=== PATIENT | male | born 1965 | race Caucasian/White ===

== ENCOUNTER → 2018-11-05 08:38 | Outpatient (CLI) | payer OTHER, SELFPAY ==
[2018-11-05 10:13] LABS: Add Manual Diff / Slide Review NO; Basophils Percent Auto 0.2 % (0-2); Eosinophils Percent Auto 0.9 % (2-4); Hematocrit 41.1 % (41-53); Mean Corpuscular HGB Conc 34.1 % (30-36); Mean Corpuscular Hemoglobin 31.3 PG (26-34); Mean Corpuscular Volume 91.7 fL (80-100); Monocytes Percent Auto 6.5 % (3-14); Neutrophils Absolute Auto 5600 /uL (1500-7000); Neutrophils Percent Auto 74.4 % (50-75); Platelet Count 281 X10^3/uL (150-400); Red Blood Cell Count 4.48 X10^6/uL (4.5-5.9); Red Cell Distribution Width 13.8 % (11.6-14.8); White Blood Cell Count 7.6 X10^3/uL (4.5-11.0)
[2018-11-05 10:25] LABS: Alanine Aminotransferase 29 IU/L (21-72); Albumin 4.7 g/dL (3.5-5.0); Albumin Globulin Ratio 1.6 (1.0-2.8); Alkaline Phosphatase 36 U/L (38-126); Aspartate Aminotransferase 27 IU/L (17-59); Bilirubin Total 0.7 mg/dL (0.2-1.3); Blood Urea Nitrogen 14 mg/dL (9-20); Carbon Dioxide 28 mmol/L (22-32); Chloride 102 mmol/L (98-107); Cholesterol 181 mg/dL (140-199); Estimated Glomerular Filt Rate > 60.0 mL/min (>60); Globulin 2.9 g/dL (1.7-4.1); Glucose 92 mg/dL (70-100); HDL Cholesterol 68 mg/dL (40-60); HEMOLYSIS 17 (0-50); LDL Cholesterol Calculated 102 mg/dL (<100); Sodium 141 mmol/L (137-145); Total Protein 7.6 g/dL (6.3-8.2); Triglycerides 56 mg/dL (35-150)
[2018-11-05 10:26] LABS: Potassium 5.5 mmol/L (3.4-5.1)
[2018-11-05 10:56] LABS: Prostate Specific Antigen 0.422 ng/mL (0.10-4.00)
== END ==
PROVIDERS: PCP Family Medicine; Visit Provider Family Medicine
DX: E78.2 Mixed hyperlipidemia (principal); I10 Essential (primary) hypertension; Z12.5 Encounter for screening for malignant neoplasm of prostate
CPT/HCPCS: 36415; 80053; 80061; 84153; 84443; 85025

== ENCOUNTER 2019-10-04 11:53 | Day surgery (SDC) | payer OTHER, SELFPAY ==
[2019-10-04 12:30] VITALS: BP 137/83; PULSE 77; RESP 20; TEMP 36.3; O2SAT 97; BMI 25.7
[2019-10-04] MEDS: SODIUM CHLORIDE 0.9% 1,000 ML 200 ML IV (12:40)
--- NOTE | 2019-10-04 12:55 | PM.HP.1 ---
History of Present Illness History of Present Illness Date Patient Seen: 10/04/19 Time Patient Seen: 12:55 Chief complaint: 10414 Narrative: This is a 54-year-old man here for his 1st screening colonoscopy. He denies any personal history of melena, hematochezia, abdominal pain, unexplained weight loss. He has no family history of colon polyps or colon cancers. He states he is otherwise healthy other than some high blood pressure for which he takes lisinopril. He denies any other symptoms or concerns. ROS Thirteen system review is negative other than as mentioned below and in HPI. PE: GENERAL: Well groomed and cooperative. Appears stated age. Answers questions promptly and appropriately. Vital signs noted. HENT: Normocephalic, atraumatic. Hearing intact. Oral mucosa is pink and moist. EYES: Conjunctiva pink, sclera white, no periorbital swelling. CARDIOVASCULAR: Regular rate. No pedal edema. RESPIRATORY: Non tachypneic, breathing comfortably on room air. GASTROINTESTINAL: Abdomen soft and non-distended GENITALURINARY: No flank tenderness. MUSCULOSKELETAL: Equal tone and mass bilaterally. SKIN: Warm, dry, soft, appropriate color for ethnicity. No other lesions, rashes, or wounds. NEURO: Alert and Oriented X 3. No gross sensory deficits, or cognitive issues. PSYCH: Appropriate affect and mood. Patient History Surgical History No history of previous surgery (Resolved 09/2015) Family & Social History Family History Mother Age: 74 Hypertension Father No problems noted. Brother No problems noted. Brother No problems noted. Social History: household members none Tobacco & Substance use: Smoking Status Former smoker alcohol intake current Meds Home Medications and Allergies Home Medications Medication Instructions Recorded Confirmed Type lisinopril 20 mg tablet 20 mg PO QDAY #90 tab 04/13/19 Rx Allergies Allergy/AdvReac Type Severity Reaction Status Date / Time No Known Drug Allergies Allergy Unverified 02/22/19 08:53 Exam Vital Signs (past 8 hours): - 10/04/19 12:30 Temperature 97.4 F L Pulse Rate 77 Respiratory Rate 20 Blood Pressure 137/83 Pulse Oximetry 97 Oxygen Delivery Method Room Air Assessment & Plan Assessment and plan (1) At average risk for colon cancer: Current visit: Yes Status: Acute (2) Colon cancer screening: Current visit: Yes Status: Acute Assessment & Plan narrative: This is a 54-year-old man here for his 1st colonoscopy. He is of the appropriate age for colon cancer screening. He denies any personal history of symptoms or any family history of concern. Risks and benefits of colonoscopy and possible polypectomy were discussed including risk of bleeding, perforation, need for additional procedures, risks of anesthesia. The patient desires to proceed. Plan: Screening colonoscopy, possible polypectomy Time Spent With Patient Time with patient: 15-24 minutes Quality VTE Deep Vein Thrombosis/Pulmonary Embolism Present on Admission: No
[2019-10-04] MEDS: fentaNYL 250 MCG/5 ML INJ IV (13:11)
[2019-10-04] MEDS: MIDAZOLAM 5 MG/5 ML VIAL IV (13:11)
--- NOTE | 2019-10-04 13:26 | PM.OP.ENDO ---
Operative Date/Time/Diagnoses Date of procedure: 10/04/19 Time of procedure: 13:26 Pre-op diagnosis: Average risk for colon cancer. Never had a screening colonoscopy. Post-op diagnosis: same Procedure & Clinicians Study performed: Screening colonoscopy Same procedure as scheduled: Yes Indications: Average risk for colon cancer. Never had a screening colonoscopy. Surgeon: Regi Buenrostro Procedure Notes SCOAP/Timeout: Performed Procedure in detail: The patient was brought to the room and placed in left lateral decubitus position with all bony prominences padded. A time-out was performed and then the patient was given procedural sedation starting with 5 mg of Versed and 100 mcg of fentanyl. Vitals were monitored throughout the procedure and remained stable. Once adequately sedated the procedure was begun. A rectal exam was performed revealing no abnormalities. The colonoscope was then introduced to the rectum and advanced to the cecum in the usual fashion. The cecum was identified by the appendiceal orifice, the mucosal try fold, and the ileocecal valve. The scope was then retracted while rotating side to side and examining each mucosal fold. Moderate diverticulosis was seen through the descending and sigmoid colon. No signs of active diverticulitis. At the conclusion procedure retroflexion was performed and small grade 1-2 internal hemorrhoids without stigmata of bleeding were seen. The scope was then withdrawn from the rectum the procedure was concluded. The patient tolerated the procedure well was transferred to the PACU in stable condition. Scope withdrawal time: 7 Sedation minutes: 15 Findings: diverticulosis Specimen(s): none sent Complications: none Impression: No polyps found. Moderate diverticulosis. Post-procedure Recommendations: Colonscopy in 10 years (Unless concerning symptoms arise) and Other recommendation (High-fiber diet, fiber supplement such as Metamucil or back fiber) Follow up: as needed Disposition: PACU
[2019-10-04 13:34] VITALS: BP 114/80; PULSE 72; RESP 10; TEMP 36.6; O2SAT 97
[2019-10-04 13:40] VITALS: BP 130/76; PULSE 66; RESP 14; O2SAT 98
[2019-10-04 13:45] VITALS: BP 122/73; PULSE 68; RESP 17; TEMP 36.3; O2SAT 99
[2019-10-04 13:54] VITALS: BP 123/79; PULSE 66; RESP 16; TEMP 36.6; O2SAT 96
== END 2019-10-04 14:00 | disposition home or self-care (01) ==
LOC: ENDO 11:55
PROVIDERS: Family Provider Family Medicine; PCP Family Medicine; Visit Provider Surgery
PROC: 0DJD8ZZ Inspection of Lower Intestinal Tract, Via Natural or Artificial Opening Endoscopic (ICD-10-PCS; CPT 45378; principal; 2019-10-04 13:00)
DX: Z12.11 Encounter for screening for malignant neoplasm of colon (principal); K64.0 First degree hemorrhoids; K57.30 Diverticulosis of large intestine without perforation or abscess without bleeding
CPT/HCPCS: 45378; 99152; J2250; J3010

== ENCOUNTER → 2020-06-15 11:21 | Outpatient (CLI) | payer OTHER, SELFPAY ==
[2020-06-15 12:33] LABS: Add Manual Diff / Slide Review NO; Basophils Absolute Auto 0 /uL (0-100); Basophils Percent Auto 0.5 % (0-2); Eosinophils Absolute Auto 100 /uL (0-450); Eosinophils Percent Auto 0.9 % (2-4); Hematocrit 40.7 % (41-53); Hemoglobin 13.8 g/dL (13.5-17.5); Lymphocytes Absolute Auto 1400 /uL (1100-4500); Lymphocytes Percent Auto 19.7 % (25-40); Mean Corpuscular HGB Conc 33.9 % (30-36); Mean Corpuscular Hemoglobin 30.8 PG (26-34); Mean Corpuscular Volume 90.7 fL (80-100); Monocytes Absolute Auto 500 /uL (0-900); Monocytes Percent Auto 7.7 % (3-14); Neutrophils Absolute Auto 5000 /uL (1500-7000); Neutrophils Percent Auto 71.2 % (50-75); Platelet Count 260 X10^3/uL (150-400); Red Blood Cell Count 4.49 X10^6/uL (4.5-5.9); Red Cell Distribution Width 13.3 % (11.6-14.8)
[2020-06-15 12:57] LABS: Alanine Aminotransferase 24 IU/L (<50); Albumin 4.6 g/dL (3.5-5.0); Albumin Globulin Ratio 1.5 (1.0-2.8); Alkaline Phosphatase 54 U/L (38-126); Aspartate Aminotransferase 30 IU/L (17-59); Bilirubin Total 0.4 mg/dL (0.2-1.3); Blood Urea Nitrogen 13 mg/dL (9-20); Calcium 9.6 mg/dL (8.4-10.2); Carbon Dioxide 29 mmol/L (22-32); Chloride 101 mmol/L (98-107); Cholesterol 200 mg/dL (140-199); Estimated Glomerular Filt Rate > 60.0 mL/min (>60); Glucose 94 mg/dL (70-100); HDL Cholesterol 73 mg/dL (40-60); HEMOLYSIS < 15 (0-50); LDL Cholesterol Calculated 97 mg/dL (<100); Potassium 4.3 mmol/L (3.4-5.1); Sodium 137 mmol/L (137-145); Total Protein 7.6 g/dL (6.3-8.2); Triglycerides 151 mg/dL (35-150)
[2020-06-15 13:25] LABS: Prostate Specific Antigen Scrn 1.16 ng/mL (0.1-4.0)
== END ==
PROVIDERS: Family Provider Family Medicine; PCP Family Medicine; Referring Provider Family Medicine; Visit Provider Family Medicine
DX: Z12.5 Encounter for screening for malignant neoplasm of prostate (principal); E78.2 Mixed hyperlipidemia; I10 Essential (primary) hypertension
CPT/HCPCS: 36415; 80053; 80061; 85025; G0103

== ENCOUNTER → 2020-06-19 10:15 | Outpatient (CLI) | payer OTHER, SELFPAY ==
--- NOTE | 2020-06-19 10:17 | DI.RAD.S_ITS ---
PROCEDURE: XR ANKLE LT MIN 3V INDICATIONS: Injury two months ago, rolled ankle TECHNIQUE: 3 views of the ankle were acquired. COMPARISON: None. FINDINGS: Bones: No fractures or dislocations. Ankle mortise is normally aligned. No suspicious bony lesions. Chronic appearing corticated subcentimeter ossicle projecting adjacent to the medial malleolus possibly loose body versus chronic fracture fragment. There is chronic appearing deformity of the distal fibula in keeping with fracture callus. Soft tissues: No tibiotalar joint effusion. Achilles tendon not well seen. IMPRESSION: Chronic post-traumatic and degenerative findings as above. If the patient's pain or other symptoms persist, consider further evaluation with MRI Dictated by: Sunil Stewart M.D. on 06/19/2020 at 11:42 Approved by: Sunil Stewart M.D. on 06/19/2020 at 11:44
== END ==
PROVIDERS: Family Provider Family Medicine; PCP Family Medicine; Referring Provider Family Medicine; Visit Provider Family Medicine
DX: M25.572 Pain in left ankle and joints of left foot (principal); M76.60 Achilles tendinitis, unspecified leg; S99.912D Unspecified injury of left ankle, subsequent encounter; X50.0XXD Overexertion from strenuous movement or load, subsequent encounter
CPT/HCPCS: 73610

== ENCOUNTER → 2020-06-29 11:44 | Outpatient (CLI) | payer OTHER, SELFPAY ==
--- NOTE | 2020-06-29 11:45 | DI.MRI.S_ITS ---
PROCEDURE: MR ANKLE LT WO CON INDICATIONS: left ankle pain/achilles pain TECHNIQUE: Noncontrast sagittal T1 spin echo and T2 fast spin echo with fat saturation, axial proton density fast spin echo and T2 fast spin echo with fat saturation, coronal T1 spin echo and T2 fast spin echo with fat saturation through the ankle/hindfoot. COMPARISON: None. FINDINGS: Image quality: Excellent. Bones and joints: No bone marrow contusions or fractures. No hindfoot coalitions. Unfused accessory navicular is noted, with mild degenerative changes seen at the synchondrosis. No osteochondral injuries of the talar dome. No pathologic joint effusions. Medial structures: Posterior tibialis intact. Flexor digitorum longus intact. There is mild posterior tibialis and flexor digitorum longus tenosynovitis. Flexor hallucis longus tendon intact. The posterior tibial neurovascular bundle appears normal within the tarsal tunnel, without extrinsic mass effect. Deltoid ligament complex appears intact. The spring ligament appears intact. Lateral structures: Anterior talofibular ligament intact. Calcaneofibular ligament intact. Posterior talofibular ligament intact. Anterior and posterior tibiofibular ligaments appear intact, as is the intermalleolar ligament. Tibiofibular syndesmosis is normal in width at 2 mm or less. Peroneus longus and brevis tendons appear normal. Bony peroneal tubercle and retrotrochlear prominence are normal in size. Sinus tarsi demonstrates normal fatty signal, without edema, fibrosis, or cyst formation. Anterior structures: Tibialis anterior intact. Extensor hallucis longus intact. Extensor digitorum longus tendon intact. Dorsal talonavicular ligament appears intact. Posterior and plantar structures: Rupture of the Achilles tendon is noted, with the distal stump visualized approximately 6.4 cm cephalad to the calcaneal insertion. There is marked background tendinopathy and interstitial change. There is adjacent soft tissue edema and fluid. Medial and lateral bands of the plantar fascia intact. No abductor digiti quinti muscle atrophy to suggest Mcclain neuropathy. IMPRESSION: Complete rupture of the Achilles tendon as detailed above. Mild posterior tibialis and flexor digitorum longus tenosynovitis Mild peroneus longus tenosynovitis. 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 Dictated by: Sunil Stewart M.D. on 06/29/2020 at 13:09 Approved by: Sunil Stewart M.D. on 06/29/2020 at 13:16
== END ==
PROVIDERS: Family Provider Family Medicine; PCP Family Medicine; Referring Provider Family Medicine; Visit Provider Family Medicine
DX: S86.012A Strain of left Achilles tendon, initial encounter (principal); M65.872 Other synovitis and tenosynovitis, left ankle and foot; M25.572 Pain in left ankle and joints of left foot; M76.60 Achilles tendinitis, unspecified leg; M72.2 Plantar fascial fibromatosis
CPT/HCPCS: 73721

== ENCOUNTER → 2021-07-23 13:49 | Outpatient (CLI) | payer OTHER, SELFPAY ==
[2021-07-23 14:40] LABS: BUN Creatinine Ratio 23.7 (6-22); Blood Urea Nitrogen 22 mg/dL (9-20); Calcium 9.4 mg/dL (8.4-10.2); Carbon Dioxide 26 mmol/L (22-32); Chloride 104 mmol/L (98-107); Estimated Glomerular Filt Rate > 60.0 mL/min (>60); Glucose 97 mg/dL (70-100); HEMOLYSIS < 15 (0-50); Potassium 4.3 mmol/L (3.4-5.1); Sodium 138 mmol/L (137-145)
[2021-07-23 15:11] LABS: Prostate Specific Antigen Scrn 0.582 ng/mL (0.1-4.0)
== END ==
PROVIDERS: Family Provider Family Medicine; PCP Family Medicine; Referring Provider Student in an Organized Health Care Education/Training Program; Visit Provider Student in an Organized Health Care Education/Training Program
DX: I10 Essential (primary) hypertension (principal); Z12.5 Encounter for screening for malignant neoplasm of prostate
CPT/HCPCS: 36415; 80048; G0103

== ENCOUNTER 2021-08-29 14:31 | Emergency (ER) | payer OTHER, SELFPAY ==
[2021-08-29 15:20] VITALS: BP 150/85; PULSE 72; RESP 18; TEMP 36.6; O2SAT 99; BMI 27.2
--- NOTE | 2021-08-29 15:26 | DI.US.S_ITS ---
PROCEDURE: US PERIPH VENOUS LOW EXTREM LT INDICATIONS: swelling, recent surgery, clinical concern for DVT TECHNIQUE: Real-time imaging, as well as color and pulse Doppler interrogation, were performed of the lower extremity deep veins from the inguinal ligament to the popliteal fossa. COMPARISON: None. FINDINGS: The common femoral, femoral and popliteal veins are normally compressible, and free of intraluminal thrombus. Color and pulse Doppler demonstrate normal phasic intraluminal flow. There is normal augmentation response to distal compression maneuver. IMPRESSION: Negative for deep venous thrombosis. Dictated by: Skip Zapata M.D. on 08/29/2021 at 15:02 Approved by: Skip Zapata M.D. on 08/29/2021 at 15:02
--- NOTE | 2021-08-29 18:48 | ED_ITS ---
HPI - Extremity Injury (Lower) <MAYTE Castano - Last Filed: 08/29/21 22:01> General Chief Complaint: Extremity Injury, Lower Stated Complaint: Left Achillies Surgery, Swelling Time Seen by Provider: 08/29/21 18:47 Source: patient Mode of arrival: Ambulatory History of Present Illness HPI Narrative: 56-year-old male presents emergency department today for increased swelling of his lower left extremity he is status post Achilles tendon repair on June 25. He states that he ruptured his Achilles all while fishing in [place], and waited most of a year to have it fixed. He states that he is going to physical therapy which has been helpful, his recovery has been uneventful and progressing as expected. 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 He denies any recent fever, lower extremity swelling that doesn't resolve with elevation, redness, discoloration, pain out of proportion or any increase of pain. Related Data Home Medications Medication Instructions Recorded Confirmed aspirin 325 mg tablet 325 mg PO BID 07/23/21 07/23/21 Previous Rx's Medication Instructions Recorded lisinopril 20 mg tablet 20 mg PO BID #180 tab 07/23/21 hydrochlorothiazide 25 mg tablet 25 mg PO DAILY #90 tab 08/27/21 Allergies Allergy/AdvReac Type Severity Reaction Status Date / Time No Known Drug Allergies Allergy Unverified 07/23/21 13:16 Review of Systems <MAYTE Castano - Last Filed: 08/29/21 22:01> Review of Systems Narrative: General: denies fever, chills Head/Neck: denies headache, neck pain Eyes: denies visual changes, eye pain Cardio: denies chest pain, palpitations Respiratory: denies shortness of breath, cough GI: denies abdominal pain, nausea, vomiting, or diarrhea : denies dysuria, hematuria MSK: denies joint pain, muscle weakness Skin: denies rash, itching, no wounds, no discoloration Neuro: denies numbness, tingling Patient History <MAYTE Castano - Last Filed: 08/29/21 22:01> Surgical History No history of previous surgery (09/2015) Family History Mother Age: 75 Hypertension Father No problems noted. Brother No problems noted. Brother No problems noted. Social History household members: none Smoking Status: Former smoker alcohol intake: current (occasionally) substance use type: does not use Smoking Status: Former smoker alcohol intake frequency: holidays/special occasions only Substance Use Type: does not use Exam <MAYTE Castano - Last Filed: 08/29/21 22:01> Narrative Exam Narrative: Independently reviewed vitals signs and nursing notes. General: Awake, alert, nontoxic, no cardiorespiratory distress Head/Neck: Atraumatic, neck full range of motion Eyes: EOMI, conjunctiva normal Nose: nares patent, no rhinorrhea Mouth/Throat: moist mucus membranes, posterior pharynx normal, no oral lesions Cardio: Regular rate and rhythm, no peripheral edema Respiratory: respirations unlabored without wheezing, stridor, or rales. No retractions. GI: Abdomen soft, nontender MSK: Moves all extremities, neurovascularly intact. Left foot with a Achilles tendon scar which is healed, no signs or symptoms of infection including erythema, edema, warmth or spreading erythema present. DP and PT pulses were 2+ on palpation to left foot, patient's skin is normal color for him and consistent with his right foot. There is edema present anterior to his calcaneus up to his medial and lateral malleoli on either side. It is nonpitting. [place] noting, patient has been elevating his foot for the last 2 hours, and he and his signif icant other report that most all of the swelling that was present when he checked in is gone. Skin: Normal capillary refill, no rash Neuro: Normal speech and cognition, normal gait Initial Vital Signs Initial Vital Signs: Vital Signs Temperature 98 F 08/29/21 15:20 Pulse Rate 72 08/29/21 15:20 Respiratory Rate 18 08/29/21 15:20 Blood Pressure 150/85 H 08/29/21 15:20 Pulse Oximetry 99 08/29/21 15:20 <Cassandra Mcmahon MD - Last Filed: 08/30/21 07:42> Initial Vital Signs Initial Vital Signs: Vital Signs Temperature 98 F 08/29/21 15:20 Pulse Rate 72 08/29/21 15:20 Respiratory Rate 18 08/29/21 15:20 Blood Pressure 150/85 H 08/29/21 15:20 Pulse Oximetry 99 08/29/21 15:20 Course <MAYTE Castano - Last Filed: 08/29/21 22:01> Orders Ordered: ED Orders 08/29/21 15:26 US periph venous low extrem lt Stat Vital Signs Vital signs: Vital Signs - 8 hr 08/29/21 15:20 08/29/21 19:08 Temperature 98 F Pulse Rate 72 71 Respiratory Rate 18 Blood Pressure 150/85 H 172/90 H Pulse Oximetry 99 99 <Cassnadra Mcmahon MD - Last Filed: 08/30/21 07:42> Orders Ordered: ED Orders 08/29/21 15:26 US periph venous low extrem lt Stat Vital Signs Vital signs: Vital Signs - 8 hr 08/29/21 15:20 08/29/21 19:08 Temperature 98 F Pulse Rate 72 71 Respiratory Rate 18 Blood Pressure 150/85 H 172/90 H Pulse Oximetry 99 99 MDM - Extremity Injury (Lower) <MAYTE Castano - Last Filed: 08/29/21 22:01> Imaging Data US - DVT: Radiologist's Impression: PROCEDURE:? US PERIPH VENOUS LOW EXTREM LT ? INDICATIONS:? swelling, recent surgery, clinical concern for DVT ? TECHNIQUE:? Real-time imaging, as well as color and pulse Doppler interrogation, were performed of the lower extremity deep veins from the inguinal ligament to the popliteal fossa.? ? COMPARISON:? None. ? FINDINGS:? The common femoral, femoral and popliteal veins are normally compressible, and free of intraluminal thrombus.? Color and pulse Doppler demonstrate normal phasic intraluminal flow.? There is normal augmentation response to distal compression maneuver. ? ? IMPRESSION:? ? Negative for deep venous thrombosis. ? ? Dictated by: Skip Zapata M.D. on 08/29/2021 at 15:02 ? ? Approved by: Skip Zapata M.D. on 08/29/2021 at 15:02 ? 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 Ultrasound peripheral venous lower extremity of his left lower extremity was negative for deep venous thrombosis. His increased dependent edema of his left lower extremity is worse when his leg is dependent and it improves with elevation back to baseline. Capillary refill is less than 2 seconds, no signs of thrombosis, pulses were strong and palpable, edema reduced with elevation, no signs of compartment syndrome. Patient understands to follow up with his surgeon and physical therapy about recommended amount of activity he should be doing at this stage of his postoperative period. Patient is still using his walking boot, and recommended to continue icing every evening and as much as possible, elevating as much as possible, and if going to be working on the boat to elevate while working. Patient is appropriate and amenable to discharge home. Vital signs are stable on repeat examination is unremarkable. Patient has been informed of results. Patient has been given strict return to ER precautions for any new or worsening symptoms. Patient understands to follow up closely with outpatient providers as instructed. Patient understands plan and agrees to discharge home. All questions and concerns answered at this time. Discharge Plan Departure Patient Disposition: Home Clinical Impression: Swelling of lower extremity Activity Restrictions/Additional Instructions: *You have been diagnosed with expected swelling after lower extremity being more dependent and active then prior to returning to work. Your ultrasound today was negative for any venous thrombus, AKA clot, in your lower left extremity. There does not appear to be any signs of infection, I suspect this is most likely due to you returning to work and being more active than your postoperatively. Keep doing much your doing to rest your lower extremity, try to keep it elevated as much as possible, ice it every night, Motrin can be helpful for pain if your letter to take it. *What to do: *Please continue to take your regular medications as directed. [ ] New medication prescriptions sent to your pharmacy: [ ] [ ] New medication written as a paper prescription [x ] No new medications given *Please follow up with your primary care provider in 2-3 days, call for an appointment. Let them know you were seen in the Emergency Department and that we ask that you be seen in follow up. We will electronically transmit a record of today's note if your PCP is in our system *If you do not have a primary care provider please contact the [facility] Resource line at [phone]. They will ask some questions about your medical history and help get you set up with a doctor in the community. *Return to Emergency Department if you should have any new, worsening or concerning symptoms, such as [fever greater than 101F, chills, worsening pain, persistent vomiting or other bothersome symptoms] Prescriptions: No Action hydrochlorothiazide 25 mg tablet 25 mg PO DAILY Qty: 90 RF: 3 aspirin 325 mg tablet 325 mg PO BID RF: 0 lisinopril 20 mg tablet 20 mg PO BID Qty: 180 RF: 0 Referrals: Catracho Zhao MD [Primary Care Provider] - <Cassandra Mcmahon MD - Last Filed: 08/30/21 07:42> Cosign ED Attending Coskatiature Attestation: I was immediately available in the department for consultation throughout this patient's visit. I agree with documentation as above. Cassandra Mcmahon MD
[2021-08-29 19:08] VITALS: BP 172/90; PULSE 71; O2SAT 99
== END 2021-08-29 19:09 | disposition home or self-care (01) ==
PROVIDERS: Emergency Provider Nurse Practitioner Critical Care Medicine; Family Provider Family Medicine; PCP Student in an Organized Health Care Education/Training Program
DX: M79.89 Other specified soft tissue disorders (principal)
CPT/HCPCS: 93971; 99283

== ENCOUNTER → 2022-12-17 08:29 | Outpatient (CLI) | payer OTHER, SELFPAY ==
[2022-12-17 09:18] LABS: BUN Creatinine Ratio 26.1 (6-22); Blood Urea Nitrogen 23 mg/dL (9-20); Calcium 8.7 mg/dL (8.4-10.2); Carbon Dioxide 23 mmol/L (22-32); Chloride 103 mmol/L (98-107); Estimated Glomerular Filt Rate > 60 mL/min (>60); Glucose 97 mg/dL (70-100); HEMOLYSIS < 15 (0-50); Potassium 4.7 mmol/L (3.4-5.1); Sodium 137 mmol/L (137-145)
[2022-12-18 16:30] LABS: Hep C Virus Ab w/Reflex Quant NEGATIVE s/c (NEGATIVE)
== END ==
PROVIDERS: Family Provider Family Medicine; PCP Student in an Organized Health Care Education/Training Program; Referring Provider Student in an Organized Health Care Education/Training Program; Visit Provider Student in an Organized Health Care Education/Training Program
DX: Z12.5 Encounter for screening for malignant neoplasm of prostate (principal); I10 Essential (primary) hypertension; Z11.59 Encounter for screening for other viral diseases
CPT/HCPCS: 36415; 80048; 86803; G0103

== ENCOUNTER → 2025-06-27 07:47 | Outpatient (CLI) | payer OTHER, SELFPAY ==
[2025-06-27 08:51] LABS: Add Manual Diff / Slide Review NO; Hematocrit 41.4 % (41-53); Hemoglobin 14.3 g/dL (13.5-17.5); Lymphocytes Absolute Auto 1900 /uL (1100-4500); Mean Corpuscular HGB Conc 34.4 % (30-36); Mean Corpuscular Hemoglobin 30.5 PG (26-34); Mean Corpuscular Volume 88.5 fL (80-100); Platelet Count 258 X10^3/uL (150-400)
[2025-06-27 09:26] LABS: HEMOLYSIS < 15 (0-50)
[2025-06-27 09:35] LABS: Alanine Aminotransferase 25 IU/L (<50); Albumin 4.0 g/dL (3.5-5.0); Albumin Globulin Ratio 1.5 (1.0-2.8); Alkaline Phosphatase 50 U/L (38-126); Blood Urea Nitrogen 19 mg/dL (9-20); Calcium 9.3 mg/dL (8.4-10.2); Carbon Dioxide 24 mmol/L (22-32); Chloride 104 mmol/L (98-107); Cholesterol 174 mg/dL (140-199); Estimated Glomerular Filt Rate > 60 mL/min (>60); Globulin 2.7 g/dL (1.7-4.1); Glucose 105 mg/dL (70-99); HDL Cholesterol 50 mg/dL (40-60); Potassium 4.4 mmol/L (3.4-5.1); Sodium 137 mmol/L (137-145); Total Protein 6.7 g/dL (6.3-8.2); Triglycerides 93 mg/dL (35-150)
[2025-06-27 10:03] LABS: TSH w/ Reflex to FT4 2.83 uIU/mL (0.47-4.68)
== END ==
PROVIDERS: PCP Family Medicine; Referring Provider Family Medicine; Visit Provider Family Medicine
DX: I10 Essential (primary) hypertension (principal); E78.2 Mixed hyperlipidemia; Z12.5 Encounter for screening for malignant neoplasm of prostate
CPT/HCPCS: 36415; 80053; 80061; 82172; 84443; 85025; G0103